=== PATIENT | female | born 1950 | race Caucasian/White ===

== ENCOUNTER 2017-02-07 14:46 | Emergency (ER) | payer MEDICARE ==
[~2017-02-07] VITALS: Ht 172.7 cm; Wt 85.3 kg
[~2017-02-07 14:46] MED LIST: FAMVIR500 MG PO; HYDROCODON-ACE1 EAC8 PO; NORCO 5-325 TA1 EACH PO
[2017-02-07] MEDS ORDERED: SUMATRIPTAN SU100 MG PO (15:01)
[2017-02-07] MEDS ORDERED: ZOFRAN ODT4 MG PO (18:09)
[2017-02-07] MEDS ORDERED: PANTOPRAZOLE SO40 MG PO (18:09)
== END 2017-02-07 18:36 | disposition home or self-care (01) ==
LOC: ED 14:46
DX: K52.9 Noninfective gastroenteritis and colitis, unspecified (principal); Z88.5 Allergy status to narcotic agent; Z90.49 Acquired absence of other specified parts of digestive tract
CPT/HCPCS: 74020; 80053; 81001; 83690; 85025; 96361; 96374; 96375; 96376; 99284; J1200; J2405; J7030

== ENCOUNTER 2020-06-04 12:00 | Emergency (ER) | payer MEDICARE, OTHER ==
[~2020-06-04] VITALS: Ht 172.7 cm; Wt 85.3 kg
[~2020-06-04 12:00] MED LIST changes: +PANTOPRAZOLE SO40 MG PO; +SUMATRIPTAN SU100 MG PO; +ZOFRAN ODT4 MG PO
[2020-06-04] MEDS ORDERED: DICLOFENAC SODI50 MG PO (12:15)
[2020-06-04] MEDS ORDERED: ASPIRIN EC325 MG PO (12:15)
[2020-06-04] MEDS ORDERED: METOCLOPRAMIDE10 MG PO (12:15)
[2020-06-04] MEDS ORDERED: PERCOCET 10-321 EACH PO (12:16)
[2020-06-04] MEDS ORDERED: REGLAN10 MG PO (12:16)
[2020-06-04] MEDS ORDERED: SENOKOT-S TABL1 EACH PO (12:16)
[2020-06-04] MEDS ORDERED: ELIQUIS5 MG PO (12:50)
== END 2020-06-04 13:16 | disposition home or self-care (01) ==
LOC: ED 12:00
DX: I82.441 Acute embolism and thrombosis of right tibial vein (principal); Z96.651 Presence of right artificial knee joint; Z87.891 Personal history of nicotine dependence; Z88.5 Allergy status to narcotic agent; Z79.899 Other long term (current) drug therapy; Z79.82 Long term (current) use of aspirin
CPT/HCPCS: 93971; 99283